=== PATIENT | female | born 1940 | race Caucasian/White ===

== ENCOUNTER 2016-06-23 16:34 | Inpatient (IN) | payer OTHER ==
[2016-06-23 16:43] VITALS: BMI 24.7
[2016-06-23 17:18] LABS: BASOPHIL 0.6 % (0-2.0); EOSINOPHIL 1.7 % (0-4.5); MCH 27.3 pg (25.7-33.7); MCHC 33.2 g/dl (32.0-36.0); MEAN CELL VOLUME 82.3 fl (80-96); MEAN PLT VOLUME 7.8 fl (7.5-11.1); NEUTROPHILS 68.1 % (42.8-82.8); PLATELET COUNT 258 K/MM3 (134-434); RDW 15.2 % (11.6-15.6); WHITE BLOOD COUNT 9.1 K/mm3 (4.0-10.0)
[2016-06-23] MEDS ORDERED: ASPIRIN 81 MG CHEWABLE TABLETS PO ONE (17:19)
--- NOTE | 2016-06-23 17:25 | PDOC ---
History of Present Illness - General History Source: Patient, Family (Daughter ) Exam Limitations: No Limitations - History of Present Illness Initial Comments: 06/23/16 17:38 The patient is a 75 year old female, with a significant past medical history of HTN (on Losartan), hyperlipidemia and cardiomegaly (patient had a pacemaker placed a couple years ago in [place]), who presents to the emergency department with chest pressure for one hour prior to presentation to the ED. The patients primary language is Lao, her daughter is at the bedside translating and providing history from this afternoons events. The patient was at her OB/GYNs office for a routine outpatient visit for a uterine prolapse earlier this afternoon. While there, it was found that her blood pressure was 184/114. Her PCP, Dr. Henrry Lazo, was notified and he advised that she visit an ED for evaluation as he adjusted her blood pressure medication only a couple weeks ago. At approximately 3:30PM, while the patient was still at her OB/GYNs office , she began experiencing chest pressure and associated left upper extremity tingling. She states that the chest pressure lasted approximately one hour before resolving on its own. She states that she is not experiencing the chest pressure currently in the ED. She denies any associated headache, diaphoresis, palpitations or shortness of breath. She denies nausea, vomiting, diarrhea, dysuria or any recent illnesses. She has not taken any aspirin for the chest pressure today. The patient's daughter states that the patient was seen by a director social service (she does not know who) recently but reports that she is unsure about the last time she had an extensive cardiac workup. Allergies: None reported. Past Surgical History: Pacemaker, Disk Herniation Repair. Social History: Non smoker. Denies alcohol or drug use. PCP: Dr. Henrry Lazo <Ramila Sadler - Last Filed: 06/23/16 19:37> - General History Source: Patient Exam Limitations: No Limitations <Luis Morse - Last Filed: 06/23/16 19:42> - General Chief Complaint: Chest Pain Stated Complaint: PCP SENT/BLOOD PRESSURE PROBLEM Time Seen by Provider: 06/23/16 16:36 Past History <Ramila Sadler - Last Filed: 06/23/16 19:37> - Past Medical History Cardiac Disorders: Yes (pacemaker) HTN: Yes Hypercholesterolemia: Yes - Surgical History Cardiac Surgery: Yes (pacemaker) Neurologic Surgery: Yes (disk herniation repair) - Psycho/Social/Smoking Cessation Hx Suicidal Ideation: No Smoking History: Never smoked <Luis Morse - Last Filed: 06/23/16 19:42> - Past Medical History Allergies/Adverse Reactions: Allergies Allergy/AdvReac Type Severity Reaction Status Date / Time No Known Allergies Allergy Verified 06/23/16 16:36 Home Medications: Ambulatory Orders Losartan Potassium 100 mg PO ONCE 06/23/16 Review of Systems - Review of Systems Able to Perform ROS?: Yes Comments:: 06/23/16 17:34 GENERAL/CONSTITUTIONAL: No fever or chills. No weakness. HEAD, EYES, EARS, NOSE AND THROAT: No change in vision. No ear pain or discharge. No sore throat. CARDIOVASCULAR: +Chest pain, elevated blood pressure. No shortness of breath. RESPIRATORY: No cough, wheezing, or hemoptysis. GASTROINTESTINAL: No nausea, vomiting, diarrhea or constipation. GENITOURINARY: No dysuria, frequency, or change in urination. MUSCULOSKELETAL: No joint or muscle swelling or pain. No neck or back pain. SKIN: No rash. NEUROLOGIC: +Left upper extremity tingling. No headache, vertigo, loss of consciousness, or change in strength. ENDOCRINE: No increased thirst. No abnormal weight change. HEMATOLOGIC/LYMPHATIC: No anemia, easy bleeding, or history of blood clots. ALLERGIC/IMMUNOLOGIC: No hives or skin allergy. <Ramila Sadler - Last Filed: 06/23/16 19:37> *Physical Exam - Vital Signs Last Vital Signs Temp Pulse Resp BP Pulse Ox 97.7 F 70 19 150/69 97 06/23/16 16:36 06/23/16 16:36 06/23/16 16:36 06/23/16 16:36 06/23/16 16:36 - Physical Exam Comments: 06/23/16 17:28 GENERAL: Awake, alert, and fully oriented, in no acute distress. HEAD: No signs of trauma. EYES: PERRLA, EOMI, sclera anicteric, conjunctiva clear. ENT: Auricles normal inspection, hearing grossly normal, nares patent, oropharynx clear without exudates. Moist mucosa. NECK: Normal ROM, supple, no lymphadenopathy, JVD, or masses. LUNGS: Breath sounds equal, clear to auscultation bilaterally. No wheezes, and no crackles. HEART: Right sided pacemaker. Regular rate and rhythm, normal S1 and S2, no murmurs, rubs or gallops. ABDOMEN: Soft, nontender, normoactive bowel sounds. No guarding, no rebound. No masses. EXTREMITIES: Normal range of motion, no edema. No clubbing or cyanosis. No cords, erythema, or tenderness. NEUROLOGICAL: Cranial nerves II through XII grossly intact. Normal speech, normal gait. SKIN: Warm, dry, normal turgor, no rashes or lesions noted. <Ramila Sadler - Last Filed: 06/23/16 19:37> - Vital Signs Last Vital Signs Temp Pulse Resp BP Pulse Ox 97.7 F 70 19 150/69 97 06/23/16 16:36 06/23/16 16:36 06/23/16 16:36 06/23/16 16:36 06/23/16 16:36 <Luis Morse - Last Filed: 06/23/16 19:42> Heart Score/ECG Review - History History: Moderately suspicious - Electrocardiogram EKG: Non specific repolarization disturbance - Age Age: >/= 65 - Risk Factors Based on the list above the patient has:: >/=3 risk factors or Hx atherosclerotic disease - Troponin Troponin: </= normal limit - Score Heart Score - Total: 6 #1 ECG reviewed & interpreted by me at: 17:00 06/23/16 17:23 Atrial sensed ventricle paced rhythm heart rate 59 <Luis Morse - Last Filed: 06/23/16 19:42> ED Treatment Course - LABORATORY CBC & Chemistry Diagram: 06/23/16 17:01 06/23/16 17:01 - ADDITIONAL ORDERS Additional order review: 06/23/16 17:01 RBC 4.82 MCV 82.3 MCHC 33.2 RDW 15.2 MPV 7.8 Neutrophils % 68.1 Lymphocytes % 24.3 Monocytes % 5.3 Eosinophils % 1.7 Basophils % 0.6 <Ramila Sadler - Last Filed: 06/23/16 19:37> - LABORATORY CBC & Chemistry Diagram: 06/23/16 17:01 06/23/16 17:01 - RADIOLOGY Radiology Studies Ordered: Category Date Time Status CHEST X-RAY PORTABLE* [RAD] Stat Radiology 06/23/16 17:18 Ordered <uLis Morse - Last Filed: 06/23/16 19:42> Medical Decision Making - Medical Decision Making 06/23/16 17:50 EXAM: RAD/CHEST X-RAY PORTABLE Reviewed By: Dr. Shavonne Stevens IMPRESSION: Borderline cardiomegaly without evidence of acute lung disease. Call placed to Dr. Carrasco at 19:12, 19:38. Referred to answering service, awaiting callback. Case discussed with Dr. Carrasco at 19:38. <Ramila Sadler - Last Filed: 06/23/16 19:37> - Medical Decision Making 06/23/16 17:23 A portion of this note was documented by scribe services under my direction. I have reviewed the details of the note, within reason, and agree with the documentation with the following case summary and management plan written by me. Patient treated in the ED. Nursing notes are reviewed and incorporated into the medical decision-making. Vital signs reviewed. Peripheral IV access obtained by the nurse, laboratory studies are drawn and sent, reviewed and interpreted by myself. Vital Signs Temp Pulse Resp BP Pulse Ox 97.7 F 70 19 150/69 97 06/23/16 16:36 06/23/16 16:36 06/23/16 16:36 06/23/16 16:36 06/23/16 16:36 75-year-old female with past medical history of hypertension, hyperlipidemia, "enlarged heart", pacemaker presents with chest pressure. Patient was undergoing routine outpatient visit with her wood box maker for uterine prolapse. While at the office, patient is noted to have a blood pressure reading of 184/ 114. Approximately 3:30, patient noted to have chest pressure sensation with left upper showing tingling. Denies radiation, nausea, vomiting, diaphoresis. She reported that her symptoms were persistent for one hour and resolved on its own. Denies recent illnesses. Patient is unsure last time she had a provocative testing. Given her cardiac history, we'll need to rule out myocardial infarction. We'll obtain blood work including troponins, chest x-ray, labs. Order aspirin. The patient needs to be admitted to the hospital for further evaluation. 06/23/16 19:40 CBC, BMP 06/23/16 17:01 06/23/16 17:01 CMP Sodium 142 mmol/L (136-145) 06/23/16 17:01 Potassium 3.4 mmol/L (3.5-5.1) L 06/23/16 17:01 Chloride 106 mmol/L (98-107) 06/23/16 17:01 Carbon Dioxide 26 mmol/L (21-32) 06/23/16 17:01 Anion Gap 10 (8-16) 06/23/16 17:01 BUN 12 mg/dL (7-18) 06/23/16 17:01 Creatinine 0.5 mg/dL (0.55-1.02) L 06/23/16 17:01 Creat Clearance w eGFR > 60 (>60) 06/23/16 17:01 Random Glucose 110 mg/dL (74-106) H 06/23/16 17:01 Calcium 8.6 mg/dL (8.5-10.1) 06/23/16 17:01 Total Bilirubin 0.4 mg/dL (0.2-1.0) 06/23/16 17:01 AST 24 U/L (15-37) 06/23/16 17:01 ALT 25 U/L (12-78) 06/23/16 17:01 Alkaline Phosphatase 124 U/L (45-117) H 06/23/16 17:01 Creatine Kinase 116 IU/L (26-192) 06/23/16 17:01 Troponin I 0.03 ng/ml (0.00-0.05) 06/23/16 17:01 Total Protein 7.5 g/dl (6.4-8.2) 06/23/16 17:01 Albumin 3.7 g/dl (3.4-5.0) 06/23/16 17:01 Chest xray reviewed. Cardiomegaly. Case discussed with Dr. Carrasco. She accepts the patient to telemetry admission for further evaluation. Case discussed in detail with admitting physician including history, physical exam and ancillary studies. Admitting physician has assumed care for the patient, will follow all pending diagnostics and will complete the evaluation and treatment. <Luis Morse - Last Filed: 06/23/16 19:42> *DC/Admit/Observation/Transfer - Attestations Scribe Attestion: 06/23/16 17:28 Documentation prepared by Ramila Sadler, acting as medical claims processor for Luis Morse MD. <Ramila Sadler - Last Filed: 06/23/16 19:37> - Discharge Dispostion Admit: Yes <Luis Morse - Last Filed: 06/23/16 19:42> Diagnosis at time of Disposition: Chest pain Qualifiers: Chest pain type: unspecified Qualified Code(s): R07.9 - Chest pain, unspecified Hypertension Qualifiers: Hypertension type: unspecified secondary hypertension Qualified Code(s): I15.9 - Secondary hypertension, unspecified; I15 - Secondary hypertension - Discharge Dispostion Condition at time of disposition: Stable - Referrals Referrals: Henrry Lazo MD [Primary Care Provider] -
[2016-06-23 17:34] LABS: INR 1.04 (0.82-1.09); PROTHROMBIN TIME (PATIENT) 11.4 SEC (9.98-11.88)
[2016-06-23] MEDS ORDERED: ASPIRIN 81 MG CHEWABLE TABLETS ONE (17:35)
[2016-06-23 17:40] LABS: ALBUMIN 3.7 g/dl (3.4-5.0); ANION GAP 10 (8-16); CALCIUM 8.6 mg/dL (8.5-10.1); CO2 26 mmol/L (21-32); CREATININE 0.5 mg/dL (0.55-1.02); GLUCOSE,RANDOM 110 mg/dL (74-106); SGOT/AST 24 U/L (15-37); SGPT/ALT 25 U/L (12-78)
[2016-06-23 17:44] LABS: ALK PHOS 124 U/L (45-117); BILIRUBIN,TOTAL 0.4 mg/dL (0.2-1.0); TOT PROT 7.5 g/dl (6.4-8.2); TROPONIN I 0.03 ng/ml (0.00-0.05)
[2016-06-24 08:09] LABS: MCHC 32.7 g/dl (32.0-36.0); MEAN CELL VOLUME 82.5 fl (80-96); MEAN PLT VOLUME 7.9 fl (7.5-11.1); PLATELET COUNT 217 K/MM3 (134-434); RDW 15.2 % (11.6-15.6); WHITE BLOOD COUNT 7.3 K/mm3 (4.0-10.0)
[2016-06-24 08:32] LABS: ALBUMIN 3.4 g/dl (3.4-5.0); ANION GAP 7 (8-16); BILIRUBIN,TOTAL 0.5 mg/dL (0.2-1.0); CALCIUM 8.3 mg/dL (8.5-10.1); CO2 28 mmol/L (21-32); CREATININE 0.4 mg/dL (0.55-1.02); GLUCOSE,RANDOM 87 mg/dL (74-106); SGOT/AST 25 U/L (15-37); SGPT/ALT 22 U/L (12-78); TOT PROT 7.2 g/dl (6.4-8.2)
[2016-06-24 08:34] LABS: ALK PHOS 113 U/L (45-117); TROPONIN I 0.04 ng/ml (0.00-0.05)
[2016-06-24] MEDS ORDERED: PNEUMOC 13-VAL CONJ-DIP CRM/PF 0.5 ML DISP.SYRIN IM ONE (09:00)
[2016-06-24] MEDS ORDERED: INFLUENZA VACCINE 45 MCG/0.5 ML (MDV 16-17) IM ONE (11:00)
--- NOTE | 2016-06-24 11:02 | CON.CARD ---
Consult Consult Specialty:: Cardiology Referred by:: Dr. Carrasco Reason for Consultation:: Chest pain, uncontrolled HTN - History of Present Illness Chief Complaint: sent in for uncontrolled HTN by obgyn History of Present Illness: 75 year old woman with a history of HTN, HLD, CHB s[place] PPM [place], recently established care in the office and was found to have PPM generator at EOL with noise on atrial lead. pt was planned for outpatient gen change and atrial lead revision. she saw her boiler cleaner yesterday and noted to have severe uncontrolled htn. pt also notes some chest pressure that started yesterday. pt seen and examined today in nad. states that her chest pain has resolved. states that she has had it on and off for past several days, substernal, pressure like, but not associated with exertion or sob. no pnd, orthopnea, or le edema. no lightheadedness, dizziness, syncope, or near syncope. no fever or chills. - History Source History Provided By: Patient, Family Member Limitations to Obtaining History: Language Barrier - Past Medical History Cardio/Vascular: Yes: HTN, Hyperlipdemia, Other (chb s/p ppm) ...: No - Alcohol/Substance Use Hx Alcohol Use: No - Smoking History Smoking history: Never smoked Have you smoked in the past 12 months: No - Social History ADL: Independent History of Recent Travel: No Home Medications - Allergies Allergies/Adverse Reactions: Allergies Allergy/AdvReac Type Severity Reaction Status Date / Time No Known Allergies Allergy Verified 06/23/16 16:36 - Home Medications Home Medications: Ambulatory Orders Losartan Potassium 100 mg PO ONCE 06/23/16 Atorvastatin Ca [Lipitor] 20 mg PO HS 06/24/16 Losartan Potassium 100 mg PO DAILY 06/24/16 Family Disease History - Family Disease History Family History: Denies Review of Systems - Review of Systems Constitutional: denies: No Symptoms, Chills, Diaphoresis, Fever, Lethargy, Loss of Appetite, Malaise, Night Sweats, Unintentional Wgt. Loss, Weakness, Other Eyes: denies: No Symptoms, Blind Spots, Blurred Vision, Double Vision, Eye Pain , Floaters, Photophobia, Recent Change in Vision, Other HENT: denies: No Symptoms, Difficult Swallowing, Ear Discharge, Ear Pain, Epistaxis, Gingival Bleeding, Hearing Loss, Mouth Swelling, Nasal Congestion, Ocular Prosthesis, Throat Pain, Toothache, Ringing in Ears, Other Neck: denies: No Symptoms, Decreased ROM, Lumps, Pain on Movement, Stiffness, Swollen Glands, Tenderness, Other Cardiovascular: reports: Chest Pain. denies: No Symptoms, Edema, Palpitations, Shortness of Breath, Other Respiratory: denies: No Symptoms, Cough, Exercise Intolerance, Hemoptysis, Orthopnea, PND, Snoring, SOB, SOB on Exertion, Wheezing, Other Gastrointestinal: denies: No Symptoms, Abdominal Pain, Bloating, Constipation, Diarrhea, Dysphagia, Indigestion, Melena, Nausea, Rectal Bleeding, Vomiting, Vomiting Blood, Other Genitourinary: denies: No Symptoms, Burning, Discharge, Dysuria, Flank Pain, Frequency, Hematuria, Incontinence, Lesions, Menses, Pain, Testicular Mass, Testicular Pain, Testicular Swelling, Urgency, Vaginal Bleeding, Other Breasts: denies: No Symptoms Reported, See HPI, Breast Implants, Discharge from Nipple, Lumps, Pain, Skin Changes, Other Musculoskeletal: denies: No Symptoms, Back Pain, Crepitus, Decreased ROM, Extremity Pain, Joint Pain, Joint Swelling, Muscle Pain, Muscle Cramps, Muscle Weakness, Other Integumentary: denies: No Symptoms, Blister, Bruising, Change in Color, Eczema, Erythema, Incision, Lesions, Lump, Pallor, Pruritis, Rash, Wound, Other Neurological: denies: No Symptoms, Change in LOC, Change in Speech, Confusion, Dizziness, Headache, Incoordination, Numbness, Parasthesia, Pre-Existing Deficit , Seizure, Syncope, Tremors, Unsteady Gait, Weakness, Other Endocrine: denies: No Symptoms, Excessive Sweating, Flushing, Increased Hunger, Increased Thirst, Intolerance to Cold, Intolerance to Heat, Unexplained Weight Gain, Unexplained Weight Loss, Other Hematology/Lymphatic: denies: No Symptoms, Easily Bruised, Excessive Bleeding, Swollen Glands, Other Psychiatric: denies: No Symptoms, Altered Sleep Pattern, Anxiety, Depression, Hallucinations, Panic, Paranoia, Suicidal, Other - Risk Factors Known Risk Factors: Yes: Age, Hypercholesterolemia, Hypertension Vital Signs: Vital Signs Temperature 98.3 F 06/24/16 09:00 Pulse Rate 60 06/24/16 09:00 Respiratory Rate 18 06/24/16 09:00 Blood Pressure 136/63 06/24/16 09:00 O2 Sat by Pulse Oximetry (%) 99 06/24/16 09:00 Constitutional: Yes: Well Nourished, No Distress, Calm Eyes: Yes: WNL, Conjunctiva Clear, EOM Intact, PERRL HENT: Yes: WNL, Atraumatic, Normocephalic Neck: Yes: WNL, Supple, Trachea Midline Respiratory: Yes: WNL, Regular, CTA Bilaterally. No: Rales, Rhonchi, Wheezes Gastrointestinal: Yes: WNL, Normal Bowel Sounds, Soft. No: Distention, Tenderness Renal/: Yes: WNL Cardiovascular: Yes: WNL, Regular Rate and Rhythm. No: Bradycardia, Tachycardia , Pulse Irregular, Gallop, Rub, Varicosities JVD: No Carotid Bruit: No PMI: Non-Displaced Heart Sounds: Yes: S1, S2. No: Split S2, S3, S4, Clicks, Gallop, Rub, Bruit Murmur: No: Systolic Murmur, Diastolic Murmur Musculoskeletal: Yes: WNL Extremities: Yes: WNL Edema: No Peripheral Pulses WNL: Yes Peripheral Pulses: 2+ Left Doralis Pedis, 2+ Right Dorsalis Pedis Integumentary: Yes: WNL Neurological: Yes: WNL, Alert, Oriented, Cran Nerves II-XII Intact ...Motor Strength: WNL Psychiatric: Yes: WNL, Alert, Oriented - Other Data Labs, Other Data: CBC, BMP 06/24/16 07:45 06/24/16 07:45 INR, PTT INR 1.04 (0.82-1.09) 06/23/16 17:01 Troponin, BNP 06/24/16 07:45 Troponin I 0.04 Troponin, BNP 06/24/16 07:45 Troponin I 0.04 ekg-asensed vpaced, sinus bradycardia Echo: Report Reviewed Imaging - Results Chest X-ray: Report Reviewed, Image Reviewed EKG: Report Reviewed, Image Reviewed Other: Report Reviewed, Image Reviewed (tele-AV paced) Assessment/Plan 75 year old woman with a history of HTN, HLD, CHB s[place], recently established care in the office and was found to have PPM generator at EOL with noise on atrial lead. pt was planned for outpatient gen change and atrial lead revision. she saw her boiler cleaner yesterday and noted to have severe uncontrolled htn. pt also notes some chest pressure that started yesterday. pt seen and examined today in nad. states that her chest pain has resolved. 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
[2016-06-24] MEDS ORDERED: LOSARTAN POTASSIUM 50 MG TABLET (FP) PO SCH (11:30)
[2016-06-24 15:12] VITALS: BP 134/62; PULSE 64; TEMP 98.5
--- NOTE | 2016-06-24 16:40 | EKG ---
Test Reason : Blood Pressure : / mmHG Vent. Rate : 059 BPM Atrial Rate : 059 BPM P-R Int : 138 ms QRS Dur : 170 ms QT Int : 486 ms P-R-T Axes : 067 -76 086 degrees QTc Int : 481 ms Atrial-sensed ventricular-paced rhythm ABNORMAL ECG NO PREVIOUS ECGS AVAILABLE Confirmed by MD SUKHDEV, MARY ELLEN ([id number]) on 06/24/2016 4:39:54 PM Referred By: ERIN Confirmed By:MARY ELLEN SANTIZO MD
--- NOTE | 2016-06-25 02:18 | HP ---
Admitting History and Physical - Admission Chief Complaint: Pt was seen and examined on 06/24/16 however note was not saved correctly - Past Medical History Cardiovascular: Yes: HTN, Hyperlipdemia, Other (chb s/p ppm) ...: No - Smoking History Smoking history: Never smoked Have you smoked in the past 12 months: No - Alcohol/Substance Use Hx Alcohol Use: No - Social History ADL: Independent History of Recent Travel: No Home Medications - Allergies Allergies/Adverse Reactions: Allergies Allergy/AdvReac Type Severity Reaction Status Date / Time No Known Allergies Allergy Verified 06/23/16 16:36 - Home Medications Home Medications: Ambulatory Orders Losartan Potassium 100 mg PO ONCE 06/23/16 Atorvastatin Ca [Lipitor] 20 mg PO HS 06/24/16 Losartan Potassium 100 mg PO DAILY 06/24/16 Physical Examination Vital Signs: Vital Signs Temperature 98.5 F 06/24/16 15:09 Pulse Rate 64 06/24/16 15:09 Respiratory Rate 20 06/24/16 15:09 Blood Pressure 134/62 06/24/16 15:09 O2 Sat by Pulse Oximetry (%) 99 06/24/16 09:00 Labs: CBC, BMP 06/24/16 07:45 06/24/16 07:45
--- NOTE | 2016-06-28 15:27 | EKG ---
Test Reason : Blood Pressure : / mmHG Vent. Rate : 055 BPM Atrial Rate : 055 BPM P-R Int : 146 ms QRS Dur : 170 ms QT Int : 494 ms P-R-T Axes : 059 -76 083 degrees QTc Int : 472 ms Atrial-sensed ventricular-paced rhythm ABNORMAL ECG WHEN COMPARED WITH ECG OF 23-JUN-2016 16:54, VENT. RATE HAS DECREASED BY 4 BPM Confirmed by MARÍA ELENA SIDDIQI MD ([id number]) on 06/28/2016 3:26:49 PM Referred By: Confirmed By:MARÍA ELENA SIDDIQI MD
== END 2016-06-24 15:13 | disposition short-term general hospital (02) | DRG 203 ==
LOC: JER 16:34 → JERBED 20:49 → J4W 23:28
PROVIDERS: ADMIT Internal Medicine; ATTEND Internal Medicine
DX: R07.9 Chest pain, unspecified (principal); Z95.0 Presence of cardiac pacemaker; I10 Essential (primary) hypertension; E78.5 Hyperlipidemia, unspecified; I51.7 Cardiomegaly; N81.4 Uterovaginal prolapse, unspecified
CPT/HCPCS: 36415; 71010-TC; 80053; 82550; 84484; 85025; 85027; 85610; 85730; 93005; 93010; 99285-25

== ENCOUNTER 2016-11-15 07:22 | Day surgery (SDC) | payer OTHER ==
[2016-11-14 19:18] VITALS: BMI 23.3
--- NOTE | 2016-11-15 05:58 | HP ---
History & Physical Update - History History: No Change - Physical Physical: No Change - Assessment Assessment: No Change - Plan Plan: No Change
[~2016-11-15 07:22] MED LIST: CYCLOPENTOLATE HCL 1% OPHTH SOLN 2 ML BOTTLE OP SCH; MOXIFLOXACIN HCL 0.5% OPHTHALMIC 3 ML BOTTLE OP SCH; PHENYLEPHRINE 2.5% OPHTH SOLN 15 ML BOTTLE OP SCH; TOBRAMYCIN/DEXAMETHASONE OPHTH. OINTMENT 1 TUBE TP ONE; TROPICAMIDE 1% OPHTH SOLN 15 ML BOTTLE OP SCH
[2016-11-15 07:40] VITALS: TEMP 97.7
[2016-11-15] MEDS ORDERED: TROPICAMIDE 1% OPHTH SOLN 15 ML BOTTLE ONE (07:44)
[2016-11-15] MEDS ORDERED: CYCLOPENTOLATE HCL 1% OPHTH SOLN 2 ML BOTTLE ONE (07:44)
[2016-11-15] MEDS ORDERED: MOXIFLOXACIN HCL 0.5% OPHTHALMIC 3 ML BOTTLE ONE (07:44)
[2016-11-15] MEDS ORDERED: PHENYLEPHRINE 2.5% OPHTH SOLN 15 ML BOTTLE ONE (07:45)
[2016-11-15] MEDS ORDERED: EPINEPHrine/PF 1 MG/1 ML (1:1,000) AMPULE ONE (08:59)
[2016-11-15] MEDS ORDERED: TOBRAMYCIN/DEXAMETHASONE OPHTH. OINTMENT 1 TUBE ONE (08:59)
[2016-11-15] MEDS ORDERED: BUPIVACAINE HCL/PF 0.75% 10 ML VIAL ONE (09:00)
[2016-11-15] MEDS ORDERED: LIDOCAINE HCL/PF 1% SDV 5ML VIAL ONE (09:00)
[2016-11-15] MEDS ORDERED: LIDOCAINE HCL/PF 2% SDV 5ML VIAL ONE (09:00)
[2016-11-15] MEDS ORDERED: BSS (NA/CA/MG/K) BALANCED SALT SOLUTION OPHTH SOLN 15 ML BOTTLE ONE (09:02)
[2016-11-15] MEDS ORDERED: PROPOFOL 20 ML ONE ×2 (09:20→10:28)
[2016-11-15] MEDS ORDERED: SUCCINYLCHOLINE CHLORIDE 200 MG/10 ML VIAL ONE (09:20)
[2016-11-15] MEDS ORDERED: TETRACAINE 0.5% OPHTH SOLN 2 ML BOTTLE TP ONE (09:20)
[2016-11-15] MEDS ORDERED: LIDOCAINE HCL/PF 2% SDV 5ML VIAL PNB ONE (09:25)
[2016-11-15] MEDS ORDERED: BUPIVACAINE HCL/PF 0.75% 10 ML VIAL RB ONE (09:25)
[2016-11-15] MEDS ORDERED: LIDOCAINE HCL 1% PRESERVATIVE FREE - 30ML VIAL IO ONE (09:37)
[2016-11-15] MEDS ORDERED: CHONDROITIN SU A/HYALUR SOD 1 KIT IO ONE (09:38)
[2016-11-15] MEDS ORDERED: TOBRAMYCIN/DEXAMETHASONE OPHTH. OINTMENT 1 TUBE TP ONE (09:55)
[2016-11-15 11:02] VITALS: PULSE 50
[2016-11-15 11:06] VITALS: BP 145/59
--- NOTE | 2016-11-16 10:24 | OP ---
DATE OF OPERATION: 11/15/2016 SURGEON: Sean Sanchez MD PREOPERATIVE DIAGNOSIS: Cataract, left eye. OPERATION: Phacoemulsification and intraocular lens implantation, left eye. POSTOPERATIVE DIAGNOSIS: Cataract, left eye. ANESTHESIA: Local with intravenous sedation. COMPLICATIONS: None. BLOOD LOSS: None. SPECIMEN: None. BRIEF HISTORY: The patient is a 76-year-old woman with a past medical history of hypertension, who presented with decreased vision in the left eye down to 20/50 due to a 2+ nuclear sclerotic lens. After the risks, benefits, and alternatives to cataract surgery were discussed with the patient, she consented to surgery for the left eye. DESCRIPTION OF PROCEDURE: The patient was brought to the operating room and administered a retrobulbar block after receiving intravenous sedation. She was then prepped and draped in the usual sterile fashion, and an eyelid speculum was inserted in the left eye. A paracentesis was made, and the anterior chamber was inflated with nonpreserved lidocaine. This was followed by injection of Viscoat. A groove was made in the superotemporal clear cornea which was tunneled forward with a crescent blade. The anterior chamber was entered with a 2.75 keratome. The cystotome was used to make an incision in the center of the capsule, and a continuous curvilinear capsulorrhexis was created. The lens was hydrodissected until it was found to rotate freely within the capsular bag. Phacoemulsification was then used to remove the lens in its entirety. Irrigation and aspiration were used to remove residual cortical material. The anterior chamber and capsular bag were reinflated with Provisc, and a 16.5-diopter [id number] AcrySof intraocular lens was injected into the capsular bag using the Langlois injector. The lens was dialed into place using a Sinskey hook. Irrigation and aspiration were used to remove residual Viscoelastic. The wound was stromally hydrated until it was found to be watertight and the eye was at an appropriate pressure. The eyelid speculum was removed from the eye, and TobraDex ointment and a patch and shield were placed over the left eye. The patient was transferred to the recovery room in stable condition and will follow up tomorrow. Romelia [id number]
== END 2016-11-15 11:00 | disposition home or self-care (01) ==
LOC: JASU-SURG 07:22
PROVIDERS: ATTEND Ophthalmology
PROC: 08RK3JZ Replacement of Left Lens with Synthetic Substitute, Percutaneous Approach (ICD-10-PCS; principal; 2016-11-15 09:00)
DX: H26.9 Unspecified cataract (principal)

== ENCOUNTER 2017-01-17 06:31 | Day surgery (SDC) | payer OTHER ==
[2017-01-16 10:06] VITALS: BMI 23.3
[~2017-01-17 06:31] MED LIST changes: +BUPIVACAINE HCL/PF 0.75% 10 ML VIAL RB ONE; +CHONDROITIN SU A/HYALUR SOD 1 KIT IO ONE; -CYCLOPENTOLATE HCL 1% OPHTH SOLN 2 ML BOTTLE OP SCH; +LIDOCAINE HCL 1% PRESERVATIVE FREE - 30ML VIAL IO ONE; -MOXIFLOXACIN HCL 0.5% OPHTHALMIC 3 ML BOTTLE OP SCH; -PHENYLEPHRINE 2.5% OPHTH SOLN 15 ML BOTTLE OP SCH; -TROPICAMIDE 1% OPHTH SOLN 15 ML BOTTLE OP SCH
[2017-01-17] MEDS: TROPICAMIDE 1% OPHTH SOLN 15 ML BOTTLE OP SCH ×3 (06:55→07:16)
[2017-01-17] MEDS: MOXIFLOXACIN HCL 0.5% OPHTHALMIC 3 ML BOTTLE OP SCH ×3 (06:55→07:16)
[2017-01-17] MEDS: CYCLOPENTOLATE HCL 1% OPHTH SOLN 2 ML BOTTLE OP SCH ×3 (06:55→07:15)
[2017-01-17] MEDS: PHENYLEPHRINE 2.5% OPHTH SOLN 15 ML BOTTLE OP SCH ×3 (06:55→07:16)
[2017-01-17 06:57] VITALS: TEMP 98.2
[2017-01-17] MEDS ORDERED: LIDOCAINE HCL/PF 2% SDV 5ML VIAL ONE ×2 (07:42→07:47)
[2017-01-17] MEDS ORDERED: TOBRAMYCIN/DEXAMETHASONE OPHTH. OINTMENT 1 TUBE ONE (07:42)
[2017-01-17] MEDS ORDERED: BUPIVACAINE HCL/PF 0.75% 10 ML VIAL ONE (07:42)
[2017-01-17] MEDS ORDERED: LIDOCAINE HCL/PF 1% SDV 5ML VIAL ONE (07:42)
[2017-01-17] MEDS ORDERED: BSS (NA/CA/MG/K) BALANCED SALT SOLUTION OPHTH SOLN 15 ML BOTTLE ONE (07:43)
[2017-01-17] MEDS ORDERED: TETRACAINE 0.5% OPHTH SOLN 2 ML BOTTLE ONE (07:43)
[2017-01-17] MEDS ORDERED: POVIDONE-IODINE 5% OPHTHALMIC PREP 30 ML SOLUTION ONE (07:43)
[2017-01-17] MEDS ORDERED: ePHEDrine SULFATE 50 MG/1 ML AMPULE ONE (07:47)
[2017-01-17] MEDS ORDERED: PHENYLEPHRINE HCL 10 MG/1 ML SINGLE DOSE VIAL ONE (07:47)
[2017-01-17] MEDS ORDERED: PROPOFOL 20 ML ONE (07:47)
[2017-01-17] MEDS ORDERED: SUCCINYLCHOLINE CHLORIDE 200 MG/10 ML VIAL ONE (07:48)
[2017-01-17] MEDS ORDERED: MIDAZOLAM HCL 2 MG/2 ML SINGLE DOSE VIAL ONE (07:48)
[2017-01-17] MEDS ORDERED: TETRACAINE 0.5% HCL 0.6ML DROPPER.BOTTLE TP ONE (08:08)
[2017-01-17] MEDS ORDERED: BUPIVACAINE HCL/PF 0.75% 10 ML VIAL RB ONE (08:10)
[2017-01-17] MEDS ORDERED: LIDOCAINE HCL/PF 2% SDV 5ML VIAL INF ONE ×2 (08:10)
[2017-01-17] MEDS ORDERED: POVIDONE-IODINE 5% OPHTHALMIC PREP 30 ML SOLUTION OD ONE (08:16)
[2017-01-17] MEDS ORDERED: BSS (NA/CA/MG/K) BALANCED SALT SOLUTION OPHTH SOLN 15 ML BOTTLE IO ONE (08:21)
[2017-01-17] MEDS ORDERED: LIDOCAINE HCL 1% PRESERVATIVE FREE - 30ML VIAL IO ONE (08:21)
[2017-01-17] MEDS ORDERED: EPINEPHrine/PF 1 MG/1 ML (1:1,000) AMPULE SQ ONE (08:22)
[2017-01-17] MEDS ORDERED: CHONDROITIN SU A/HYALUR SOD 1 KIT IO ONE (08:22)
[2017-01-17] MEDS ORDERED: TOBRAMYCIN/DEXAMETHASONE OPHTH. OINTMENT 1 TUBE TP ONE (08:40)
--- NOTE | 2017-01-17 08:51 | HP ---
History & Physical Update - History History: No Change - Physical Physical: No Change - Assessment Assessment: No Change - Plan Plan: No Change
[2017-01-17] MEDS ORDERED: ACETAMINOPHEN 325 MG TABLET (FP) PO PRN (09:03)
[2017-01-17] MEDS ORDERED: ONDANSETRON 4 MG/2 ML VIAL IVPUSH PRN (09:03)
[2017-01-17] MEDS ORDERED: LACTATED RINGERS SOLUTION 1,000 ML IV SCH (09:15)
[2017-01-17 11:11] VITALS: BP 130/80; PULSE 70
--- NOTE | 2017-01-18 13:16 | OP ---
DATE OF OPERATION: 01/17/2017 SURGEON: Sean Sanchez MD PREOPERATIVE DIAGNOSIS: Cataract, right eye. OPERATION: Phacoemulsification and intraocular lens implantation, right eye. POSTOPERATIVE DIAGNOSIS: Cataract, right eye. ANESTHESIA: Local with intravenous sedation. COMPLICATIONS: None. BLOOD LOSS: None. SPECIMEN: None. BRIEF HISTORY: The patient is a 76-year-old woman with a past medical history significant for hypertension who presented with decreased vision in the right eye due to a 2+ nuclear sclerotic lens and posterior subcapsular cataract. After the risks, benefits, and alternatives to cataract surgery were discussed with the patient, she consented to surgery for the right eye. The patient was brought to the operating room and administered a retrobulbar block after receiving intravenous sedation. She was then prepped and draped in the usual sterile fashion and the eyelid speculum was inserted in the right eye. A paracentesis was made and the anterior chamber was inflated with nonpreserved lidocaine. This was followed by injection of Viscoat. A groove was made into temporal clear cornea which was tunneled forward with a crescent blade. The anterior chamber was entered with a 2.75 keratome. A cystotome was used to make an incision in the center of the capsule and a continuous curvilinear capsulorrhexis was created. The lens was hydrodissected until it was found to rotate freely within the capsular bag. Phacoemulsification was then used to remove the lens in its entirety. Irrigation and aspiration were used to remove residual cortical material. The anterior chamber and capsular bag were reinflated with Provisc and an 18.5-diopter SN60WF AcrySof intraocular lens was injected into the capsular bag using the [place] injector. The lens was dialed into place using a Sinskey hook. Irrigation and aspiration were used to remove residual viscoelastic. The wound was stromally hydrated until it was found to be watertight and the eye was at an appropriate pressure. The eyelid speculum was removed from the eye and TobraDex ointment and a patch and shield were placed over the right eye. The patient was transferred to the recovery room in stable condition and will follow up tomorrow. Romelia [id number]
== END 2017-01-17 10:30 | disposition home or self-care (01) ==
LOC: JASU-SURG 06:31
PROVIDERS: ATTEND Ophthalmology
PROC: 08RJ3JZ Replacement of Right Lens with Synthetic Substitute, Percutaneous Approach (ICD-10-PCS; principal; 2017-01-17 08:00)
DX: H25.11 Age-related nuclear cataract, right eye (principal)

== ENCOUNTER 2022-07-09 11:12 | Inpatient (IN) | payer MEDICARE, OTHER ==
[2022-07-09 11:23] VITALS: BMI 22.6
[2022-07-09] MEDS ORDERED: SODIUM CHLORIDE 0.9% 1000 ML INFUS.BAG IV ONE (12:06)
[2022-07-09] MEDS ORDERED: ACETAMINOPHEN 1000 MG/100 ML BAG IVPB ONE (12:52)
[2022-07-09] MEDS ORDERED: DEXAMETHASONE SOD PHOSPHATE 10 MG/1 ML VIAL ONE (12:56)
[2022-07-09] MEDS ORDERED: DEXAMETHASONE SOD PHOSPHATE 10 MG/1 ML VIAL IVPUSH ONE (12:57)
[2022-07-09] MEDS ORDERED: ACETAMINOPHEN INJECTION 100 ML IVPB ONE (12:57)
[2022-07-09 13:05] LABS: BASO % 0.1 % (0-2.0); HEMOGLOBIN 12.6 GM/dL (10.7-15.3); LYMPH % 7.3 % (8-40); MCH 27.4 pg (25.7-33.7); MCHC 33.2 g/dl (32.0-36.0); MEAN CELL VOLUME 82.5 fl (80-96); MEAN PLT VOLUME 8.3 fl (7.5-11.1); MONO % 8.6 % (3.8-10.2); PLATELET COUNT 161 10^3/uL (134-434); RBC 4.61 M/mm3 (3.60-5.2); RDW 15.5 % (11.6-15.6); VENOUS BASE EXCESS 2.5 mmol/L (-2-2); VENOUS O2 SATURATION 82.3 % (70-80); VENOUS PCO2 43.1 mmHg (38-52); VENOUS PH 7.42 (7.310-7.410)
[2022-07-09 13:12] LABS: INR 1.14 (0.83-1.09); PROTHROMBIN TIME (PATIENT) 13.2 SEC (9.7-13.0)
[2022-07-09 13:14] LABS: ACTIVATED PTT 39.5 SECONDS (25.2-36.5)
[2022-07-09 13:38] LABS: ALBUMIN 3.3 g/dl (3.4-5.0); CALCIUM 8.4 mg/dL (8.5-10.1)
[2022-07-09 13:39] LABS: BLOOD UREA NITROGEN 19.4 mg/dL (7-18)
[2022-07-09 13:43] LABS: BILIRUBIN,TOTAL 0.5 mg/dL (0.2-1); CREATININE 0.9 mg/dL (0.55-1.3)
[2022-07-09 14:56] LABS: N-TERMINAL BNP 510.9 pg/ml (5-450)
[2022-07-09] MEDS ORDERED: ASPIRIN 81 MG CHEWABLE TABLETS PO ONE (14:57)
[2022-07-09] MEDS ORDERED: POTASSIUM CHLORIDE TABS 20 MEQ TABLET.ER (FP) PO ONE ×2 (15:42→15:48)
[2022-07-09] MEDS ORDERED: ASPIRIN 81 MG CHEWABLE TABLETS ONE (15:49)
[2022-07-09] MEDS ORDERED: KCL 10 MEQ IVPB 10 MEQ/100 ML INFUS.BAG IVPB ONE ×3 (15:49→17:55)
[2022-07-09] MEDS: KCL 10 MEQ IVPB 10 MEQ/100 ML INFUS.BAG IVPB SCH ×3 (16:01→18:26)
[2022-07-09] MEDS ORDERED: REMDESIVIR 200 MG in SODIUM CHLORIDE 250 ML IVPB ONE (17:29)
[2022-07-09 17:50] LABS: MAGNESIUM 2.2 mg/dL (1.8-2.4)
[2022-07-09 19:40] LABS: EPI CELLS 4 /uL (0-25.1); HYALINE CASTS 0 /uL (0-3.1); PH,URINE 5.5 (5.0-8.0); URINE APPEARANCE CLEAR; URINE BACTERIA 3 /uL (0-1359); URINE BILIRUBIN NEGATIVE (NEGATIVE); URINE COLOR YELLOW; URINE GLUCOSE (UA) NEGATIVE (NEGATIVE); URINE KETONE NEGATIVE (NEGATIVE); URINE LEUK ESTERASE NEGATIVE (NEGATIVE); URINE NITRITE NEGATIVE (NEGATIVE); URINE PROTEIN NEGATIVE (NEGATIVE); URINE RBC 22 /uL (0-23.9); URINE UROBILINOGEN 0.2 mg/dL (0.2-1.0); URINE WBC 4 /uL (0-25.8)
[2022-07-10] MEDS ORDERED: AZITHROMYCIN IVPB 500 MG/250 ML BAG IVPB ONE ×2 (03:23→03:30)
[2022-07-10 07:33] LABS: BASO % 0.1 % (0-2.0); HEMOGLOBIN 12.9 GM/dL (10.7-15.3); LYMPH % 12.9 % (8-40); MCH 28.2 pg (25.7-33.7); MEAN CELL VOLUME 85.3 fl (80-96); MEAN PLT VOLUME 8.9 fl (7.5-11.1); MONO % 6.3 % (3.8-10.2); NEUT % 80.7 % (42.8-82.8); PLATELET COUNT 157 10^3/uL (134-434); RBC 4.57 M/mm3 (3.60-5.2); RDW 15.6 % (11.6-15.6); WHITE BLOOD COUNT 7.7 K/mm3 (4.0-10.0)
[2022-07-10 07:44] LABS: ALBUMIN 2.8 g/dl (3.4-5.0); BLOOD UREA NITROGEN 19.4 mg/dL (7-18)
[2022-07-10 07:47] LABS: CREATININE 0.6 mg/dL (0.55-1.3)
[2022-07-10 07:49] LABS: BILIRUBIN,TOTAL 0.5 mg/dL (0.2-1); TOT PROT 6.4 g/dl (6.4-8.2)
[2022-07-10] MEDS ORDERED: CEFTRIAXONE 1 GM in DEXTROSE 5%-WATER - 50 ML IVPB SCH (10:00)
[2022-07-10] MEDS ORDERED: LOSARTAN POTASSIUM 50 MG TABLET ONE (10:43)
[2022-07-10] MEDS ORDERED: CEFTRIAXONE 1 GM/50 ML BAG ONE (10:44)
[2022-07-10] MEDS ORDERED: DEXAMETHASONE 4 MG TABLET (FP) ONE (10:44)
[2022-07-10] MEDS ORDERED: METOPROLOL TARTRATE 50 MG TABLET (FP) ONE (10:44)
[2022-07-10] MEDS ORDERED: ENOXAPARIN NA (PORCINE) 40 MG/0.4 ML DISP.SYRIN SQ ONE (10:44)
[2022-07-10] MEDS: DEXAMETHASONE 4 MG TABLET (FP) PO SCH (10:57)
[2022-07-10] MEDS: ENOXAPARIN NA (PORCINE) 40 MG/0.4 ML DISP.SYRIN SQ SCH (10:57)
[2022-07-10] MEDS: LOSARTAN POTASSIUM 50 MG TABLET PO SCH (10:57)
[2022-07-10] MEDS: REMDESIVIR 100 MG in SODIUM CHLORIDE 250 ML IVPB SCH (16:41)
[2022-07-10] MEDS ORDERED: ATORVASTATIN CA 20 MG TABLET (FP) ONE (20:52)
[2022-07-10] MEDS: ATORVASTATIN CA 20 MG TABLET (FP) PO SCH (21:01)
[2022-07-11] MEDS ORDERED: FLU VACC QS2022-23(6MOS UP)/PF 60 MCG/0.5 ML SYRINGE IM ONE (10:00)
[2022-07-11] MEDS ORDERED: AZITHROMYCIN IVPB 250 MG in DEXTROSE 5%-WATER - 250 ML IVPB SCH (10:00)
[2022-07-11] MEDS: LOSARTAN POTASSIUM 50 MG TABLET PO SCH ×2 (10:04→11:24)
[2022-07-11] MEDS: ENOXAPARIN NA (PORCINE) 40 MG/0.4 ML DISP.SYRIN SQ SCH (10:05)
[2022-07-11] MEDS: DEXAMETHASONE 4 MG TABLET (FP) PO SCH (10:05)
[2022-07-11] MEDS: REMDESIVIR 100 MG in SODIUM CHLORIDE 250 ML IVPB SCH (16:15)
[2022-07-11] MEDS: ATORVASTATIN CA 20 MG TABLET (FP) PO SCH (21:53)
[2022-07-12 08:26] LABS: BASO % 0.1 % (0-2.0); HEMATOCRIT 37.1 % (32.4-45.2); HEMOGLOBIN 12.5 GM/dL (10.7-15.3); LYMPH % 14.3 % (8-40); MCH 28.2 pg (25.7-33.7); MCHC 33.8 g/dl (32.0-36.0); MEAN CELL VOLUME 83.5 fl (80-96); MEAN PLT VOLUME 9.3 fl (7.5-11.1); MONO % 7.2 % (3.8-10.2); NEUT % 78.4 % (42.8-82.8); PLATELET COUNT 170 10^3/uL (134-434); RBC 4.45 M/mm3 (3.60-5.2); RDW 15.6 % (11.6-15.6); WHITE BLOOD COUNT 7.3 K/mm3 (4.0-10.0)
[2022-07-12 08:40] LABS: ALBUMIN 2.8 g/dl (3.4-5.0); BLOOD UREA NITROGEN 20.9 mg/dL (7-18); CALCIUM 8.4 mg/dL (8.5-10.1)
[2022-07-12 08:43] LABS: CREATININE 0.5 mg/dL (0.55-1.3)
[2022-07-12 08:45] LABS: BILIRUBIN,TOTAL 0.4 mg/dL (0.2-1); TOT PROT 6.3 g/dl (6.4-8.2)
[2022-07-12] MEDS: DEXAMETHASONE 4 MG TABLET (FP) PO SCH (10:08)
[2022-07-12] MEDS: LOSARTAN POTASSIUM 25 MG TABLET PO SCH (10:08)
[2022-07-12] MEDS: ENOXAPARIN NA (PORCINE) 40 MG/0.4 ML DISP.SYRIN SQ SCH (10:09)
[2022-07-12] MEDS: REMDESIVIR 100 MG in SODIUM CHLORIDE 250 ML IVPB SCH (17:00)
[2022-07-12] MEDS: ATORVASTATIN CA 20 MG TABLET (FP) PO SCH (21:19)
[2022-07-13] MEDS: ENOXAPARIN NA (PORCINE) 40 MG/0.4 ML DISP.SYRIN SQ SCH (10:14)
[2022-07-13] MEDS: LOSARTAN POTASSIUM 25 MG TABLET PO SCH (10:14)
[2022-07-13] MEDS: DEXAMETHASONE 4 MG TABLET (FP) PO SCH (10:14)
[2022-07-13] MEDS: REMDESIVIR 100 MG in SODIUM CHLORIDE 250 ML IVPB SCH (17:24)
[2022-07-13] MEDS: ATORVASTATIN CA 20 MG TABLET (FP) PO SCH (21:43)
[2022-07-14 00:27] VITALS: RESP 18
[2022-07-14] MEDS: LOSARTAN POTASSIUM 25 MG TABLET PO SCH (11:36)
[2022-07-14] MEDS: ENOXAPARIN NA (PORCINE) 40 MG/0.4 ML DISP.SYRIN SQ SCH (11:36)
[2022-07-14] MEDS: DEXAMETHASONE 4 MG TABLET (FP) PO SCH (11:36)
[2022-07-14] MEDS: ATORVASTATIN CA 20 MG TABLET (FP) PO SCH (22:10)
[2022-07-15] MEDS: LOSARTAN POTASSIUM 25 MG TABLET PO SCH (09:53)
[2022-07-15] MEDS: DEXAMETHASONE 4 MG TABLET (FP) PO SCH (09:53)
[2022-07-15] MEDS: ENOXAPARIN NA (PORCINE) 40 MG/0.4 ML DISP.SYRIN SQ SCH (09:53)
[2022-07-15 16:00] VITALS: BP 151/73; PULSE 50; TEMP 97.3
== END 2022-07-15 18:25 | disposition home or self-care (01) | DRG 178 ==
LOC: JER 11:12 → JERBED 12:11 → J4W 07-11 05:06
PROVIDERS: ADMIT Internal Medicine; ATTEND Internal Medicine
PROC: XW033E5 Introduction of Remdesivir Anti-infective into Peripheral Vein, Percutaneous Approach, New Technology Group 5 (ICD-10-PCS; principal; 2022-07-09)
DX: U07.1 COVID-19 (principal); I24.8 Other forms of acute ischemic heart disease; I10 Essential (primary) hypertension; E78.5 Hyperlipidemia, unspecified; Z95.0 Presence of cardiac pacemaker; R09.02 Hypoxemia; J44.9 Chronic obstructive pulmonary disease, unspecified; I49.5 Sick sinus syndrome; R55 Syncope and collapse
CPT/HCPCS: 0241U-QW; 36415; 70450-TC; 71045-TC-FY; 71275-TC; 72125-TC; 72128-TC; 72131-TC; 72170-TC-FY; 80053; 81003; 82728; 82803; 83605; 83735; 83880; 84484; 85025; 85379; 85610; 85730; 86140; 87040; 87086; 93005; 93010; 93306-TC; 93308; 93970; 94761; 99285-25; C9399; C9803-CS; J1100; U0003; U0005